=== PATIENT | male | born 1990 | race Two or more races ===

== ENCOUNTER 2024-10-01 14:49 | Emergency (ER) | payer MEDICAID, SELFPAY ==
[2024-10-01 14:51] VITALS: BMI 24.3
[2024-10-01 15:09] VITALS: BP 110/69; PULSE 62; RESP 18; TEMP 37.3; O2SAT 97
[2024-10-01] MEDS: DIPHTH,PERTUSS(ACELL),TET VAC 0.5 ML SYR- ADULT IMi (15:27)
[2024-10-01] MEDS: HYDROcodone/APAP 5/325 TABLET 1 TAB PO (15:28)
--- NOTE | 2024-10-01 15:45 | EDNOTE_ITS ---
ED General RME/HPI General Chief complaint: Animal Bite Stated complaint: DOG BITE X2 DAYS AGO Time Seen by Provider: 10/01/24 15:10 Arrival date/time: 10/01/24 14:49 34-year-old male presents emergency department today stating that he was riding his scooter in front of somebody's yard the dog was chained up but the dog was able to bite his leg while he was running past the fence patient reports he father report please are aware dog is quarantined per patient Limitations: no limitations Related Data Home Medications ?Medication ?Instructions ?Recorded ?Confirmed albuterol sulfate 90 mcg/actuation 2 puff inhalation Q 6HR PRN 10/21/15 aerosol inhaler (ProAir HFA) RESPIRATORY DISTRESS #0 i nhalations Previous Rx's ?Medication ?Instructions ?Recorded amoxicillin 875 mg-potassium 1 tab PO BID 7 days #14 t abs 10/01/24 clavulanate 125 mg tablet hydrocodone 5 mg-acetaminophen 325 1 tab PO BID PRN pa in #6 tabs 10/01/24 mg tablet ibuprofen 800 mg tablet 800 mg PO TID PRN pain #30 t abs 10/01/24 mupirocin 2 % topical ointment 1 applic topical TID 10 days #22 10/01/24 grams Allergies Allergy/AdvReac Type Severity Reaction Status Date / Time bee pollen Allergy Verified 10/01/24 14:51 Review of Systems Review of Systems Systems Reviewed: All systems reviewed, normal except as documented Constitutional Constitutional: Reports system reviewed and no additional complaints, except as documented, Denies fever(s) and Denies headache(s) Eyes Eyes: Reports system reviewed and no additional complaints, except as documented and Denies blurry vision ENT Ears, Nose, Mouth, and Throat: Reports system reviewed and no additional complaints, except as documented, Denies headache(s), Denies nasal congestion and Denies nasal discharge Cardiovascular Cardiovascular: Reports system reviewed and no additional complaints, except as documented, Denies chest pain and Denies dyspnea Respiratory Respiratory: Reports system reviewed and no additional complaints, except as documented, Denies chest congestion, Denies cough and Denies dyspnea Gastrointestinal Gastrointestinal: Reports system reviewed and no additional complaints, except as documented and Denies abdominal pain Integumentary/Breasts Skin/Breast: Reports system reviewed and no additional complaints, except as documented, Denies rash and Reports wounds (dog bite) Neurologic Neurologic: Reports system reviewed and no additional complaints, except as documented, Reports as per HPI and Denies headache(s) Past Medical History Social History SMOKING STATUS: Former smoker ED Exam General Limitations: Present no limitations General appearance: Present alert and in no apparent distress Head Head exam: Present atraumatic Eye Eye exam: Present normal appearance, PERRL and EOMI ENT ENT exam: Present normal exam, normal oropharynx and mucous membranes moist Neck Neck exam: Present normal inspection, full ROM and trachea midline Chest Chest inspection: Present normal inspection and symmetric chest wall rise Respiratory Respiratory exam: Present normal lung sounds bilaterally Cardiovascular Cardiovascular exam: Present regular rate, normal rhythm and normal heart sounds Abdominal Exam Abdominal exam: Present soft and normal bowel sounds Extremities Exam Extremities exam: Present normal inspection and full ROM Back Exam Back exam: Present normal inspection and full ROM Neurological Exam Neurological exam: Present alert, oriented X3 and CN II-XII intact Psychiatric Psychiatric exam: Present normal affect and normal mood Skin Skin exam: Present warm, dry and other (dog bite left leg ) Course Quality Measures none Orders Category Date Time Status TDap [Obtain Tdap Consent] X1 Care 10/01/24 15:17 Completed HYDROcodone*/APAP 5/325 [[place] 5/325] Med 10/01/24 15:17 Discontinued 1 tab PO X1 ONE TET,DIP/PERT AC (Adult)-Tdap [Boostrix Adult (Tdap) Med 10/01/24 15:17 Discontinued Vacc] 0.5 ml IMI .ONCE ONE Vital Signs Vital signs: Vital Signs Temperature 99.1 F 10/01/24 15:09 Pulse Rate 62 10/01/24 15:09 Respiratory Rate 18 10/01/24 15:09 Blood Pressure 110/69 10/01/24 15:09 Pulse Oximetry (%) 97 10/01/24 15:09 Oxygen Delivery Method Room Air 10/01/24 15:09 o2 sat 97% r/a wnl Discharge Plan Plan Patient Disposition: HOME (Self Care) Discharge Disposition comment: Stable Prescriptions/Referrals Prescriptions/Med Rec: New ibuprofen 800 mg tablet 800 mg PO TID PRN (Reason: pain) Qty: 30 0RF hydrocodone-acetaminophen 5-325 mg tablet 1 tab PO BID MDD 10 PRN (Reason: pain) Qty: 6 0RF mupirocin 2 % ointment 1 applic topical TID 10 Days Qty: 22 0RF amoxicillin-pot clavulanate 875-125 mg tablet 1 tab PO BID 7 Days Qty: 14 0RF No Action albuterol sulfate [ProAir HFA] 8.5 GM HFA aerosol inhaler 2 puff Inhalation Q6HR PRN (Reason: RESPIRATORY DISTRESS) Qty: 0 Problem List Clinical Impression: Dog bite of left lower leg Patient/Caregiver Discharge Instructions Education Materials: ED Dog Bite Additional Instructions: Please follow up with your primary care doctor in the next 24-48hrs for any worsening symptoms return here immediately Print Language: Malagasy Stand Alone Forms: [employer] Award Info., Work/School Release, Patient Portal Info Letter Vaccines Vaccines Given During Stay: TDaP 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 elizabeth MDM Narrative MDM hospital course (for use when minimal MDM required): 34-year-old male presents emergency department today stating that he was riding his scooter in front of somebody's yard the dog was chained up but the dog was able to bite his leg while he was running past the fence patient reports he f ather report please are aware dog is quarantined per patient On exam patient well-appearing patient does not appear ill or toxic no acute distress On exam patient is superficial dog bites to the left leg patient be treated the course of antibiotics tetanus updated patient discharged home pain medication antibiotics patient has a dog bite to the leg there are superficial Patient discharged home in no distress to follow-up with primary care doctor in the next 24 to 48 hours and for any worsening symptoms to return to the ER immediately Clinical Information Provided by: none Medical Records reviewed None and [facility] Meds/Rx considered, not ordered describe: given Chronic Illness/Social Conditions which may negatively complicate care or outcome(s)-explain: None or not applicable Labs Labs: none Imaging Imaging interpretation: none or see narrative above Medication Administration(s) Medication Administration History Discontinued Medications Hydrocodone Bitart/Acetaminophen (Hydrocodone/Apap 5/325 Tablet) 1 tab PO X1 O NE Stop: 10/01/24 15:18 Last Admin: 10/01/24 15:28 Dose: 1 tab Documented By: OA Diphtheria/Tetanus/Acell Pertussis (Diphth,Pertuss(Acell),Tet Vac 0.5 Ml Syr- Adult) 0.5 ml IMi .ONCE ONE Stop: 10/01/24 15:18 Last Admin: 10/01/24 15:27 Dose: 0.5 ml Documented By: OA given Diagnosis Differential Diagnosis ED Complaint MDM: Laceration, abrasion, dog bite
--- NOTE | 2024-10-01 16:28 | PC.SS ---
Late entry: transportation arranged for the patient via [employer], as the patient did not have transportation or ride available to pick him up. Patient limping due to dog bite. [employer] transportation arranged. Patient d/c back home.
== END 2024-10-01 16:36 | disposition home or self-care (01) ==
LOC: SERX 15:48
PROVIDERS: Emergency Provider Emergency Medicine
DX: S81.852A Open bite, left lower leg, initial encounter (principal); W54.0XXA Bitten by dog, initial encounter; Z23 Encounter for immunization
CPT/HCPCS: 90471; 90715; 99283; A9270